=== PATIENT | female | born 1990 | race Asian ===

== ENCOUNTER 2019-03-31 02:26 | Emergency (ER) | payer OTHER ==
[~2019-03-31] VITALS: Ht 170.2 cm; Wt 47.2 kg
--- NOTE | 2019-03-31 02:41 | NUR ---
ED Nurse Note: pt presents to ED with a R hand lac that happened at work at about 0200 today. pt reports she works at the [employer] at the [employer] and was carrying glass candle holders when she tripped and fell, using her R hand to break her fall. pt denies any head trauma or injury. pt's hand was dressed at the hotel, she came with bandaging on her R hand with bleeding controlled. pt states her tetanus shot is UTD
[2019-03-31 02:44] VITALS: BP 120/76
--- NOTE | 2019-03-31 02:50 | Emergency Room Report ---
History of Present Illness General Chief Complaint: Laceration Source: Patient Present Illness HPI This a 28-year-old female who is [id number]. She presents with chief complaint of laceration to her right hand. She was at work and her tray of glasses that she tripped and fell. 1 of the broken glass landed on her and sustained a laceration to her right hand. No other injury. This occur just prior to arrival. No active bleeding. Pain is 5 out of 10. Worse with movement. Better with rest. Last tetanus shot was 8 years ago. Allergies: Coded Allergies: No Known Allergies (Unverified , 03/31/19) Patient History Past Medical History: see triage record, old chart reviewed Past Surgical History: none Pertinent Family History: none Social History: Denies: smoking Now: No Immunizations: UTD Reviewed Nursing Documentation: PMH: Agreed; PSxH: Agreed Nursing Documentation-PMH Past Medical History: No Stated History Review of Systems Eye: Denies: eye pain, blurred vision ENT: Denies: ear pain, nose congestion, throat swelling Respiratory: Denies: cough, shortness of breath Cardiovascular: Denies: chest pain, palpitations Gastrointestinal: Denies: abdominal pain, diarrhea, nausea, vomiting Musculoskeletal: Denies: back pain, joint pain Skin: Denies: rash Neurological: Denies: headache, numbness Endocrine: Denies: increased thirst, increased urine Hematologic/Lymphatic: Denies: easy bruising All Other Systems: negative except mentioned in HPI Physical Exam Vital Signs Date Time Temp Pulse Resp B/P (MAP) Pulse Ox O2 Delivery O2 Flow Rate FiO2 03/31/19 02:32 98.4 87 20 120/76 (91) 99 Room Air Vitals normal Sp02 EP Interpretation: reviewed, normal General Appearance: well appearing, no apparent distress, alert Head: normocephalic, atraumatic Eyes: bilateral eye PERRL, bilateral eye EOMI ENT: hearing grossly normal, normal pharynx Neck: full range of motion, supple, no meningismus Respiratory: chest non-tender, lungs clear, normal breath sounds Cardiovascular #1: regular rate, rhythm, no murmur Gastrointestinal: normal bowel sounds, non tender, no mass, no organomegaly, no bruit, non-distended Musculoskeletal: back normal, normal range of motion, gait/station normal, other - Right hand: There is a 1 cm laceration to the palm of the right hand. No foreign body. No tendon laceration. Psychiatric: mood/affect normal Procedures Laceration/Wound Repair Laceration/Wound Repair : Consent: Verbal Wound Location: upper extremity Wound's Depth, Shape: superficial, linear Wound Length (cm): 1 Wound Explored: clean Irrigated w/ Saline (ccs): 500 Anesthesia: 1% Lidocaine Volume Anesthetic (ccs): 2 Wound Repaired With: sutures Suture Size/Type: 5:0, proline Number of Sutures: 3 Patient Tolerated: Well Complications: None Medical Decision Making Diagnostic Impression: Primary Impression: Laceration of hand Qualified Codes: S61.411A - Laceration without foreign body of right hand, initial encounter ER Course Patient with a laceration of her right hand. No foreign body or tendon laceration. Low risk for infection. Last Vital Signs Date Time Temp Pulse Resp B/P (MAP) Pulse Ox O2 Delivery O2 Flow Rate FiO2 03/31/19 02:44 86 20 120/76 99 Room Air 03/31/19 02:32 98.4 Status: improved Disposition: HOME, SELF-CARE Condition: Stable Patient Instructions: Laceration Care, Adult Additional Instructions: Keep wound clean. Apply antibiotic ointment and cover with Band-Aid. Follow- up with Workmen's [employer]. doctor in 7 days for suture removal. Return if worse. Vern Carrion MD Mar 31, 2019 02:50
[2019-03-31 03:09] VITALS: BP 120/76
--- NOTE | 2019-03-31 03:09 | NUR ---
ED Nurse Note: Pt cleared by health care Provider for discharge. DC and follow up instructions were given and explained to pt. she verbalized understanding of these teachings. All medical devices such as ID band removed. Pt is AAO x4, ambulatory and left with all personal belongings.
[2019-03-31] MEDS ORDERED: Neosporin Oint Ud Pkt TOPIC ONE (03:15)
== END 2019-03-31 03:09 | disposition home or self-care (01) ==
LOC: EMR 03:01
DX: S61.411A Laceration without foreign body of right hand, initial encounter (principal); W01.0XXA Fall on same level from slipping, tripping and stumbling without subsequent striking against object, initial encounter; Y92.9 Unspecified place or not applicable
CPT/HCPCS: 99283